=== PATIENT | female | born 1990 | race Caucasian/White ===

== ENCOUNTER 2017-03-21 09:30 | Emergency (ER) | payer OTHER ==
[2017-03-21 09:53] VITALS: BP 116/59
--- NOTE | 2017-03-21 10:35 | UC ---
General HPI - HPI Summary HPI Summary: 26yo WF c/o right upper chest wall pain intermittent x a few days, not associated with breast feeding, hurt below the 1st and 2nd rib at time, no exacerbating or alleviating factors. NO c/o pain in breast - History of Current Complaint Chief Complaint: UCWounds Stated Complaint: BREAST COMPLAINT Time Seen by Provider: 03/21/17 10:00 Hx Last Menstrual Period: 03/04/17 - Allergy/Home Medications Allergies/Adverse Reactions: Allergies Allergy/AdvReac Type Severity Reaction Status Date / Time Penicillins Allergy Hives/Diff. Verified 03/21/17 09:53 Breathing/I tching Home Medications: Home Medications NK [No Home Medications Reported] 03/21/17 [History Confirmed 03/21/17] PMH/Surg Hx/FS Hx/Imm Hx - Surgical History Surgical History: Yes Surgery Procedure, Year, and Place: 03/2012 - Social History Alcohol Use: Rare Substance Use Type: None Smoking Status (MU): Light Every Day Tobacco Smoker Type: Cigarettes, eCigarettes Household Exposure Type: Cigarettes - Immunization History Most Recent Influenza Vaccination: Not UTD Review of Systems Constitutional: Negative Skin: Negative Eyes: Negative ENT: Negative Respiratory: Negative Cardiovascular: Negative Gastrointestinal: Negative Genitourinary: Negative Motor: Negative Neurovascular: Negative Musculoskeletal: Other: - Right chest wall pain, NO breast compaints Neurological: Negative Psychological: Negative All Other Systems Reviewed And Are Negative: Yes Physical Exam Triage Information Reviewed: Yes Appearance: Well-Appearing Vital Signs: Initial Vital Signs Temp 36.2 C 03/21/17 09:44 Pulse 106 03/21/17 09:44 Resp 16 03/21/17 09:44 BP 116/59 03/21/17 09:44 Pulse Ox 98 03/21/17 09:44 Vital Signs Reviewed: Yes ENT: Positive: Normal ENT inspection Neck: Positive: Supple Respiratory Exam: Normal Cardiovascular Exam: Normal Abdominal Exam: Normal Musculoskeletal: Positive: Other: - mild tenderness over the region of 1st and 2nd ICS on right upper chest on palpation Skin Exam: Normal Course/Dx - Differential Dx - Multi-Symptom Provider Diagnoses: chest wall pain/musculoskeletal pain Discharge - Discharge Plan Condition: Stable Disposition: HOME Patient Education Materials: Musculoskeletal Pain (ED) Referrals: [facility] [place] [facility]IAN REFERRAL [Outside] - If Needed No Primary Care Phys,NOPCP [Primary Care Provider] - Additional Instructions: OTC analgesics as needed, activities as tolerated
== END 2017-03-21 10:35 | disposition home or self-care (01) ==
LOC: UCEAST 09:30
DX: R07.89 Other chest pain (principal); Z72.0 Tobacco use
CPT/HCPCS: 99211; G0463

== ENCOUNTER 2017-11-22 14:49 | Emergency (ER) | payer SELFPAY ==
[2017-11-22 17:12] VITALS: BP 119/74
--- NOTE | 2017-11-22 18:27 | RAD ---
Indication: Right hand injury. 4 views of the right hand are reviewed. There is deformity of the fifth metacarpal. This is from prior injury. No recent fracture is identified currently. IMPRESSION: Old deformity fifth metacarpal without evidence of recent fracture.
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
== END 2017-11-22 19:10 | disposition home or self-care (01) ==
LOC: UCEAST 14:49
DX: S60.221A Contusion of right hand, initial encounter (principal); S91.311A Laceration without foreign body, right foot, initial encounter; Y04.0XXA Assault by unarmed brawl or fight, initial encounter; Y93.9 Activity, unspecified; Y92.9 Unspecified place or not applicable; Z88.0 Allergy status to penicillin; F17.210 Nicotine dependence, cigarettes, uncomplicated
CPT/HCPCS: 99212; G0463

== ENCOUNTER 2018-07-30 08:41 | Emergency (ER) | payer OTHER ==
[2018-07-30 10:04] VITALS: BP 113/60
--- NOTE | 2018-07-30 10:31 | UC ---
UC General HPI - HPI Summary HPI Summary: sore throat and runny nose x 2 days. family with same. - History of Current Complaint Chief Complaint: UCGeneralIllness Stated Complaint: SORE THROAT,CONGESTION,COUGH Time Seen by Provider: 07/30/18 10:12 Hx Obtained From: Patient Hx Last Menstrual Period: 07/2018 Onset/Duration: Gradual Onset Timing: Constant Pain Intensity: 6 Associated Signs & Symptoms: Negative: Fever - Allergy/Home Medications Allergies/Adverse Reactions: Allergies Allergy/AdvReac Type Severity Reaction Status Date / Time Penicillins Allergy Anaphylatic Verified 07/30/18 10:04 Shock Home Medications: Home Medications guaiFENesin [Mucinex] 600 mg PO ONCE PRN 07/30/18 [History Confirmed 07/30/18] PMH/Surg Hx/FS Hx/Imm Hx Previously Healthy: Yes - Surgical History Surgical History: Yes Surgery Procedure, Year, and Place: x2 - Family History Known Family History: Positive: None - Social History Lives: With Family Alcohol Use: Occasionally Substance Use Type: None Smoking Status (MU): Former Smoker Type: Cigarettes Household Exposure Type: Cigarettes - Immunization History Most Recent Influenza Vaccination: Not UTD Most Recent Tetanus Shot: 2016 Vaccination Up to Date: Yes Review of Systems All Other Systems Reviewed And Are Negative: Yes ENT: Positive: Sore Throat, Sinus Congestion Physical Exam Triage Information Reviewed: Yes Appearance: Well-Appearing Vital Signs: Initial Vital Signs Temp 97.5 F 07/30/18 10:01 Pulse 81 07/30/18 10:01 Resp 16 07/30/18 10:01 BP 113/60 07/30/18 10:01 Pulse Ox 100 07/30/18 10:01 Vital Signs Reviewed: Yes Eyes: Positive: Conjunctiva Clear ENT: Positive: Pharyngeal erythema, TMs normal. Negative: Nasal drainage, Sinus tenderness Neck: Positive: Supple, Nontender, Enlarged Nodes @ - peritonsilar Respiratory: Positive: Lungs clear, Normal breath sounds Cardiovascular: Positive: RRR, No Murmur Abdomen Description: Positive: Nontender, No Organomegaly, Soft Bowel Sounds: Positive: Present Musculoskeletal: Positive: ROM Intact Neurological: Positive: Alert Psychological: Positive: Normal Response To Family, Age Appropriate Behavior Skin Exam: Normal Course/Dx - Course Course Of Treatment: diagnostic=rapid strep is negative - Diagnoses Provider Diagnosis: URI (upper respiratory infection) Discharge - Sign-Out/Discharge Documenting (check all that apply): Patient Departure All imaging exams completed and their final reports reviewed: No Studies - Discharge Plan Condition: Stable Disposition: HOME Patient Education Materials: Upper Respiratory Infection (DC) Forms: *Work Release Referrals: Carissa Tristan NP [Primary Care Provider] - 7 Days - Billing Disposition and Condition Condition: STABLE Disposition: Home
== END 2018-07-30 11:11 | disposition home or self-care (01) ==
LOC: UCCORT 08:41
DX: J06.9 Acute upper respiratory infection, unspecified (principal); Z88.0 Allergy status to penicillin; Z87.891 Personal history of nicotine dependence
CPT/HCPCS: 87651; 99211; G0463

== ENCOUNTER 2018-09-17 09:53 | Emergency (ER) | payer OTHER ==
--- OUTSIDE RECORDS SUMMARY | 2018-09-17 10:07 | XMS REPORT | Continuity of Care Document ---
:1990 External Reference #:[id number] Author Name Tricia Tristan FNP Address [address] [place] [address] Care Team Providers Name Role Phone Tricia Tristan NP Care Team Information Tobacco Prizer Unavailable Tricia Tristan NP Primary Care Physician Unavailable Payers Date Identification Numbers Payment Provider Subscriber Policy Number: [id number] [employer] Junie Dailey PayID: [id number] [address] [place] [address] Problems Active Problems Provider Date Urinary tract infectious disease Kristen Pacheco MD, PHD Onset: 04/29/2018 Hydronephrosis Kristen Pacheco MD, PHD Onset: 04/29/2018 Hypocalcemia Kristen Pacheco MD, PHD Onset: 04/29/2018 Constipation - functional Kristen Pacheco MD, PHD Onset: 05/28/2018 Resolved Problems Right upper quadrant pain Kristen Pacheco MD, PHD Onset: 05/28/2018 Resolved: 08/16/2018 Abdominal pain Kristen Pacheco MD, PHD Onset: 05/18/2018 Resolved: 08/16/2018 Family History Date Family Member(s) Observation Comments General No Current Problems Father Seizure Disorder Mother Glaucoma Social History Type Date Description Comments Sex Unknown Lives With Boyfriend Lives With Children Diet Patient follows no dietary restrictions ADL's/IADL's Independent with all ADL's ADL's/IADL's Independent with all IADL's Tobacco Use Start: Unknown End: Quit Unknown ETOH Use Occasionally consumes alcohol Tobacco Use Start: Unknown End: Patient is a former smoker Quit 03/2018 Unknown Recreational Drug Use Denies Drug Use Smoking Status Reviewed: 08/16/18 Patient is a former smoker Quit 03/2018 Allergies, Adverse Reactions, Alerts Active Allergies Reaction Severity Comments Date Penicillin Difficulty breathing 04/29/2018 Medications Active Medications SIG Qnty Indications Ordering Provider Date D3 Maximum Strength 1 cap by mouth 90caps E83.51 Kristen Pacheco, 2018 every day with MD, PHD 5000Unit Capsules food History Medications Dulcolax Stool 1 tab by mouth 180caps K59.09 Kristen Pacheco, 05/28/2018 - Softener twice a day , PHD 08/16/2018 100mg Capsules before meals Align 1 caps by mouth 14caps R10.9 Kristen Pacheco, 05/18/2018 - 4mg Capsules every day every , PHD 08/16/2018 morning Ciprofloxacin HCL Take One Tablet Unknown - 500mg By Mouth Twice 05/18/2018 Tablets A Day Ibuprofen Take One Tablet Unknown - 600mg Tablets By Mouth Three 08/16/2018 Times A Day as Needed For Pain Vital Signs Date Vital Result Comment 08/16/2018 10:06am BP Systolic 110 mmHg BP Diastolic 70 mmHg Heart Rate 86 /min Respiratory Rate 17 /min Height 62 inches 5'2" Weight 157.00 lb BMI (Body Mass Index) 28.7 kg/m2 BSA (Body Surface Area) 1.72 m2 Horace body weight in kilograms 50 kg O2 % BldC Oximetry 98 % 05/28/2018 10:10am BP Systolic 148 mmHg BP Diastolic 84 mmHg Body Temperature 98.2 F Heart Rate 103 /min Respiratory Rate 16 /min Height 62 inches 5'2" Weight 141.00 lb BMI (Body Mass Index) 25.8 kg/m2 BSA (Body Surface Area) 1.65 m2 Horace body weight in kilograms 50 kg O2 % BldC Oximetry 97 % 05/18/2018 9:35am BP Systolic 124 mmHg BP Diastolic 61 mmHg Body Temperature 97.7 F Heart Rate 90 /min Respiratory Rate 18 /min Height 62 inches 5'2" Weight 138.00 lb BMI (Body Mass Index) 25.2 kg/m2 BSA (Body Surface Area) 1.63 m2 Horace body weight in kilograms 50 kg O2 % BldC Oximetry 99 % 04/29/2018 2:08pm BP Systolic 111 mmHg BP Diastolic 66 mmHg Body Temperature 98.0 F Heart Rate 63 /min Height 62 inches 5'2" Weight 139.00 lb BMI (Body Mass Index) 25.4 kg/m2 BSA (Body Surface Area) 1.64 m2 Horace body weight in kilograms 50 kg O2 % BldC Oximetry 99 % Results Test Date Facility Test Result H/L Range Note Laboratory test 07/30/2018 [facility] Laboratory Rapid Strep Negative Negative 1 finding [phone] Molecular CBC W/Automated 05/20/2018 [facility] White Blood 8.1 K/uL N 3.1-10.[address] [place] [address] [phone] Red Blood Count 4.05 M/uL N 3.90-5.40 Hemoglobin 12.7 gm/dL N 11.6-15.8 Hematocrit 37.7 % N 36.0-46.1 Mean Cell Volume 93.1 fl N 80.9-99.0 Mean Corpuscular HGB 31.4 pg N 25.9-32.7 Mean Corpuscular HGB Conc 33.7 g/dL N 30.8-34.3 Platelet Count 232 K/uL N 155-360 Red Cell Distri Width SD 43.5 fl N 36-47 Red Cell Distri Width %CV 13.1 % N 11.7-14.4 Mean Platelet Volume 10.8 fL N 8.9-12.4 Neut% 59.1 % N 40.4-72.8 Lymph % 31.7 % N 20.0-42.0 [place] % 7.5 % N 4.3-13.2 Eo% 1.1 % N 0.0-6.6 Bas% 0.6 % N 0.0-1.1 Neut# 4.80 K/uL N 1.8-7.0 Lymph # 2.58 K/uL N 1.0-4.0 [place] # 0.61 K/uL N 0.3-0.9 Eos # 0.09 K/uL N 0.0-0.5 Baso # 0.05 K/uL N 0.0-0.1 Lactic Acid 05/20/2018 [facility] Lactic Acid 1.1 mmol/L N 0.4-1.[address] [place] [address] [phone] Lab Reflex >2.0 for Sepsis? Y Comprehensive Metabolic 05/20/2018 [facility] Glucose 97 mg/dL N 74-106 Panel [address] [address] [phone] BUN 15 mg/dL N 7-18 Creatinine 0.7 mg/dL N 0.6-1.3 Glom Filtration Rate, Estimate >60 mL/min >60 If >60 mL/min >60 3 BUN/Creat 21.4 ratio Sodium 141 mmol/L N 136-145 Potassium 3.7 mmol/L N 3.5-5.1 Chloride 108 mmol/L High 98-107 Carbon Dioxide 25 mmol/L N 21-32 Anion Gap 8 mEq/L N 8-16 Calcium 8.5 mg/dL N 8.5-10.1 Total Protein 7.5 g/dL N 6.4-8.2 Albumin 3.8 g/dL N 3.4-5.0 Globulin 3.7 g/dL N 1.9-4.3 Alb/Glob 1.0 ratio Bilirubin,Total 0.2 mg/dL N 0.2-1.0 Sgot/Ast 17 U/L N 15-37 SGPT/Alt 22 U/L N 12-78 Alkaline Phosphatase 63 U/L N 45-117 Laboratory 05/20/2018 [facility] HCG,Serum NEGATIVE (Negative) 4 test finding [address] (Qualitative) [place] [address] [phone] Laboratory 05/18/2018 [facility] Vitamin <pending> test finding [address] [facility] D,25-[place] [address] [phone] Laboratory 05/18/2018 [facility] Amylase <pending> test finding [address] [address] [phone] Lipase <pending> Ua RFX Micro & Culture 05/18/2018 [facility] Urine Color YELLOW Yellow 5 II [address] [place] [address] [phone] Urine Clarity CLEAR Clear Urine Glucose - Dipstick NEGATIVE mg/dL Negative Urine Bilirubin - Dipstick NEGATIVE Negative Urine Ketone NEGATIVE mg/dL Negative Urine Specific [place] 1.010 N 1.010-1.030 Urine Blood NEGATIVE Negative Urine PH 7.0 N 6.5-7.5 Urine Protein - Dipstick NEGATIVE mg/dL Negative Urine Urobilinogen - Dipstick 0.2 E.U./dL N 0.2-1.0 Urine Nitrite - Dipstick NEGATIVE Negative Urine Leuk Esterase NEGATIVE Negative Source: URINE, CLEAN CAT <SEE NOTE> 6 Urine Culture 05/18/2018 [facility] Urine Culture URETHRAL RONDA [address] [place] [address] [phone] Quantity 10,000 - 50,000 <SEE NOTE> 7 CBC W/Automated Diff 05/07/2018 [facility] White Blood 7.5 K/uL N 3.1-10.[address] Count [place], [place] [id number] [phone] Red Blood Count 3.87 M/uL Low 3.90-5.40 Hemoglobin 12.0 gm/dL N 11.6-15.8 Hematocrit 37.0 % N 36.0-46.1 Mean Cell Volume 95.6 fl N 80.9-99.0 Mean Corpuscular HGB 31.0 pg N 25.9-32.7 Mean Corpuscular HGB Conc 32.4 g/dL N 30.8-34.3 Platelet Count 382 K/uL High 155-360 Red Cell Distri Width SD 45.1 fl N 36-47 Red Cell Distri Width %CV 13.4 % N 11.7-14.4 Mean Platelet Volume 9.7 fL N 8.9-12.4 Neut% 68.2 % N 40.4-72.8 Lymph % 24.2 % N 20.0-42.0 [place] % 6.0 % N 4.3-13.2 Eo% 0.7 % N 0.0-6.6 Bas% 0.9 % N 0.0-1.1 Neut# 5.11 K/uL N 1.8-7.0 Lymph # 1.81 K/uL N 1.0-4.0 [place] # 0.45 K/uL N 0.3-0.9 Eos # 0.05 K/uL N 0.0-0.5 Baso # 0.07 K/uL N 0.0-0.1 Chlmaydia/GC/Trichomonas 05/07/2018 [facility] Chlamydia Negative Negative PCR [address] trachomatis, [place] [address] PCR [phone] Neisseria gonorrhoeae, PCR Negative Negative 9 Trichomonas vaginalis PCR Negative Negative 1 Damage Inside Adjuster: [id number] 2 LEFT SIDE PAIN 3 Note: Persistent reduction for 3 months or more in an eGFR <60 mL/min/1.73 m2 defines CKD. Patients with eGFR values >/=60 mL/min/1.73 m2 may also have CKD if evidence of persistent proteinuria is present. The original MDRD equation for estimated GFR is not valid for patients less than 18 years of age. Additional information may be found at www.kdoqi.org. 4 Method: Quidel QuickVue One-Step Immunoassay 5 N39.0 6 URINE, CLEAN CATCH 7 10,000 - 50,000 CFU/mL 8 PAIN AND CRAMPING UPPER L ABD, TENDER R SIDE ABD 9 A negative result for either C. trachomatis and/or N. gonorrhoeae does not preclued an infection because results are dependent on adequate specimen collection, absence of inhibitors, and sufficient DNA to be detected. Procedures Date Code Description Status 08/05/2013 06178 Anesthesia, Delivery Completed Encounters Type Date Location Provider Dx Diagnosis Office Visit 05/28/2018 [facility] Kristen Youssef, R10.11 Right upper 10:15a Kali Francis MD, PHD quadrant pain R10.30 Lower abdominal pain, unspecified K59.09 Other constipation Office Visit 05/18/2018 9:30a Family Deanna Pacheco N39.0 Urinary tract Kali Peterson MD, infection, site PHD not specified R10.9 Unspecified abdominal pain R10.11 Right upper quadrant pain Office Visit 04/29/2018 1:45p Ekaterina Osborne9.0 Urinary tract Kali Peterson MD, infection, site PHD not specified N13.30 Unspecified hydronephrosis E83.51 Hypocalcemia Plan of Treatment Future Appointment(s):09/22/2018 1:30 pm - Tricia Tristan FNP at [facility] 11/15/2018 10:00 am - Tricia Tristan FNP at [facility] 08/16/2018 - Tricia Tristan FNPK59.00 Constipation, unspecifiedComments:currently doing well with PRN (as needed) use of milk of magnesium (MOM). Consider daily use of psyllium husk as a natural fiber supplement . Be sure to drink water (eight 8 ounce glasses a day recommended), walking helps move things along as well.Follow up:well woman exam in 2-3 [id number] Generalized anxiety disorderComments:Continue with children's support
[2018-09-17 10:12] VITALS: BP 126/78
--- NOTE | 2018-09-17 10:40 | UC ---
General HPI - HPI Summary HPI Summary: 1. period is about 1.5 weeks late. she has breast tenderness. she has had a tubal ligation. no abdominal pain or bleeding. 2. bump L lower eye lid since last pm. no eye pain or discharge. - History of Current Complaint Chief Complaint: Jolie Stated Complaint: LEFT EYE COMPLAINT Time Seen by Provider: 09/17/18 10:28 Hx Obtained From: Patient Hx Last Menstrual Period: 08/07/18 Timing: Constant Pain Intensity: 4 Associated Signs & Symptoms: Negative: Abdominal Pain - Allergy/Home Medications Allergies/Adverse Reactions: Allergies Allergy/AdvReac Type Severity Reaction Status Date / Time Penicillins Allergy Anaphylatic Verified 09/17/18 10:08 Shock PMH/Surg Hx/FS Hx/Imm Hx Previously Healthy: Yes - Surgical History Surgical History: Yes Surgery Procedure, Year, and Place: x2 - Family History Known Family History: Positive: None - Social History Lives: With Family Alcohol Use: Occasionally Substance Use Type: None Smoking Status (MU): Light Every Day Tobacco Smoker Type: eCigarettes Amount Used/How Often: vapes Household Exposure Type: Cigarettes - Immunization History Most Recent Influenza Vaccination: Not UTD Most Recent Tetanus Shot: 2016 Vaccination Up to Date: Yes Review of Systems All Other Systems Reviewed And Are Negative: Yes Constitutional: Negative: Fever Skin: Negative: Rash Eyes: Positive: Eye Redness - L lower lid. Negative: Blurred Vision, Diplopia, Drainage, Photophobia ENT: Negative: Sore Throat, Ear Ache, Nasal Discharge Gastrointestinal: Negative: Abdominal Pain Genitourinary: Negative: Abnormal Bleeding Physical Exam Triage Information Reviewed: Yes Appearance: Well-Appearing Vital Signs: Initial Vital Signs Temp 97.3 F 09/17/18 10:08 Pulse 90 09/17/18 10:08 Resp 16 09/17/18 10:08 BP 126/78 09/17/18 10:08 Pulse Ox 98 09/17/18 10:08 Vital Signs Reviewed: Yes Eyes: Positive: Other: - No auricular adenopathy. No periorbital edema. Localized redness and swelling just below lash line on L lower lid(3/4cm), not fluctuant. Conjunctiva are clear. PERRL, EOMI, AC's clear> ENT: Positive: Pharynx normal, TMs normal. Negative: Nasal congestion, Nasal drainage Neck: Positive: Supple, Nontender, No Lymphadenopathy Respiratory: Positive: Lungs clear, Normal breath sounds Cardiovascular: Positive: RRR, No Murmur Abdomen Description: Positive: Nontender, No Organomegaly, Soft Bowel Sounds: Positive: Present Musculoskeletal: Positive: ROM Intact Neurological: Positive: Alert Psychological: Positive: Age Appropriate Behavior Skin Exam: Normal Diagnostics - Laboratory Lab Results: urine hcg=negative Course/Dx - Differential Dx - Multi-Symptom Differential Diagnoses: Other - no orbital or periorbital cellulitis. fairly large sty, will tx po dixycycline. - Diagnoses Provider Diagnosis: Sty, Negative test Discharge - Sign-Out/Discharge Documenting (check all that apply): Patient Departure All imaging exams completed and their final reports reviewed: No Studies - Discharge Plan Condition: Stable Disposition: HOME Prescriptions: DOXYcycline CAP(*) [DOXYcycline 100MG CAP(*)] 100 mg PO BID 7 Days #14 cap Patient Education Materials: Angela (ED) Referrals: Carissa Tristan NP [Primary Care Provider] - 7 Days - Billing Disposition and Condition Condition: STABLE Disposition: Home
== END 2018-09-17 10:45 | disposition home or self-care (01) ==
LOC: UCCORT 09:53
DX: H00.015 Hordeolum externum left lower eyelid (principal); Z32.02 Encounter for pregnancy test, result negative; F17.290 Nicotine dependence, other tobacco product, uncomplicated
CPT/HCPCS: 84702; 99212; G0463

== ENCOUNTER 2018-10-04 17:26 | Emergency (ER) | payer OTHER ==
[2018-10-04 17:33] VITALS: BP 105/68
--- NOTE | 2018-10-04 17:40 | UC ---
Abdominal Pain Female HPI - HPI Summary HPI Summary: 27-year-old woman comes in with chief complaint of right lower quadrant abdominal pain. This started couple hours ago. Pain is worse with walking and movement. It's better with rest. No fevers. Patient's had this pain on and off for couple of months. Occasional happened during intercourse. Patient has not had any abdominal surgeries. - History of Current Complaint Chief Complaint: UCAbdominalPain Stated Complaint: RIGHT ABD STABBING PAIN Time Seen by Provider: 10/04/18 17:32 Hx Last Menstrual Period: 10/01/18 Pain Intensity: 6 Allergies/Adverse Reactions: Allergies Allergy/AdvReac Type Severity Reaction Status Date / Time Penicillins Allergy Anaphylatic Verified 09/17/18 10:08 Shock Home Medications: Home Medications NK [No Home Medications Reported] 10/04/18 [History Confirmed 10/04/18] PMH/Surg Hx/FS Hx/Imm Hx Previously Healthy: Yes - Surgical History Surgical History: Yes Surgery Procedure, Year, and Place: x2 - Family History Known Family History: Positive: None - Social History Alcohol Use: Occasionally Substance Use Type: None Smoking Status (MU): Light Every Day Tobacco Smoker Type: eCigarettes Amount Used/How Often: vapes Household Exposure Type: Cigarettes - Immunization History Most Recent Influenza Vaccination: Not UTD Most Recent Tetanus Shot: 2016 Vaccination Up to Date: Yes Review of Systems All Other Systems Reviewed And Are Negative: Yes Constitutional: Positive: Negative Skin: Positive: Negative Eyes: Positive: Negative ENT: Positive: Negative Respiratory: Positive: Negative Cardiovascular: Positive: Negative Gastrointestinal: Positive: Abdominal Pain Motor: Positive: Negative Neurovascular: Positive: Negative Musculoskeletal: Positive: Negative Neurological: Positive: Negative Psychological: Positive: Negative Is Patient Immunocompromised?: No Physical Exam Triage Information Reviewed: Yes Appearance: Well-Appearing, Well-Nourished, Pain Distress - mild Vital Signs: Initial Vital Signs Temp 98.5 F 10/04/18 17:29 Pulse 84 10/04/18 17:29 Resp 16 10/04/18 17:29 BP 105/68 10/04/18 17:29 Pulse Ox 98 10/04/18 17:29 Vital Signs Reviewed: Yes Eye Exam: Normal Eyes: Positive: Conjunctiva Clear Neck: Positive: Supple Respiratory: Positive: No respiratory distress Abdomen Description: Positive: Other: - Positive heel strike and obturator sign. Positive tender to palpation RLQ. Musculoskeletal: Positive: Strength Intact, ROM Intact Neurological Exam: Normal Neurological: Positive: Alert, Muscle Tone Normal Psychological Exam: Normal Psychological: Positive: Normal Response To Family, Age Appropriate Behavior Skin Exam: Normal Abd Pain Female Course/Dx - Course Course Of Treatment: I recommended further evaluation in the Emergency department. Discussed with Rosi in the [facility]. - Differential Dx/Diagnosis Provider Diagnosis: RLQ abdominal pain Discharge - Sign-Out/Discharge Documenting (check all that apply): Patient Departure All imaging exams completed and their final reports reviewed: No Studies - Discharge Plan Condition: Stable Disposition: HOME-RECOMMEND TO ED Referrals: Carissa Tristan NP [Primary Care Provider] - Additional Instructions: GO DIRECTLY TO THE EMERGENCY DEPARTMENT FOR FURTHER EVALUATION. - Billing Disposition and Condition Condition: STABLE Disposition: Home-Recommend to ED
== END 2018-10-04 17:47 | disposition home health service (06) ==
LOC: UCCORT 17:26
DX: R10.31 Right lower quadrant pain (principal); F17.210 Nicotine dependence, cigarettes, uncomplicated
CPT/HCPCS: 99212; G0463

== ENCOUNTER 2018-10-05 09:07 | Emergency (ER) | payer OTHER ==
[2018-10-05 09:24] VITALS: BP 119/54
--- NOTE | 2018-10-05 10:44 | UC ---
Abdominal Pain Female HPI - HPI Summary HPI Summary: right lower abdominal pain x 2 weeks pain is on and off for the past 2 weeks been sever since yesterday , 8 out of 10 yesterday 6 out of 10 days , no radiation of the pain was seen at the urgent care yesterday , was told to go to ED for evaluation , had a ct done yesterday at ED with normal results, normal blood work no n/v/d/c, no urinary sx. - History of Current Complaint Chief Complaint: UCAbdominalPain Stated Complaint: RIGHT LOWER ABDOMINAL PAIN Time Seen by Provider: 10/05/18 09:36 Hx Obtained From: Patient Hx Last Menstrual Period: last week ?: No Onset/Duration: Gradual Onset, Lasting Weeks - 2, Still Present Timing: Intermittent Episodes Lasting: Severity Initially: Severe Severity Currently: Moderate Pain Intensity: 5 Location: Discrete At: RLQ Radiates: No Character: Sharp, Tearing Aggravating Factor(s): Movement Alleviating Factor(s): Spontaneous Resolution Associated Signs and Symptoms: Negative: Diaphoresis, Fever, Cough, Chest Pain, Dizzy, Back Pain, Constipation, Blood in Stool, Urinary Symptoms, Decreased Appetite, Vaginal Bleeding, Vaginal Discharge, Nausea, Vomiting, Diarrhea Allergies/Adverse Reactions: Allergies Allergy/AdvReac Type Severity Reaction Status Date / Time Penicillins Allergy Anaphylatic Verified 10/05/18 09:24 Shock PMH/Surg Hx/FS Hx/Imm Hx Previously Healthy: Yes - Surgical History Surgical History: Yes Surgery Procedure, Year, and Place: x2 - Family History Known Family History: Positive: None Negative: Diabetes - Social History Alcohol Use: Rare Substance Use Type: Excessive Caffeine Smoking Status (MU): Light Every Day Tobacco Smoker Type: eCigarettes Amount Used/How Often: vapes Household Exposure Type: Cigarettes - Immunization History Most Recent Influenza Vaccination: Not UTD Most Recent Tetanus Shot: 2016 Vaccination Up to Date: Yes Review of Systems All Other Systems Reviewed And Are Negative: Yes Constitutional: Positive: Negative Skin: Positive: Negative Eyes: Positive: Negative ENT: Positive: Negative Respiratory: Positive: Negative Gastrointestinal: Positive: Abdominal Pain Genitourinary: Negative: Dysuria, Hematuria, Frequency, Urgency, Vaginal/Penile Burning, Vaginal/Penile Itching Is Patient Immunocompromised?: No Physical Exam Triage Information Reviewed: Yes Appearance: Well-Appearing, Well-Nourished, Pain Distress Vital Signs: Initial Vital Signs Temp 98.1 F 10/05/18 09:19 Pulse 61 10/05/18 09:19 Resp 16 10/05/18 09:19 BP 119/54 10/05/18 09:19 Pulse Ox 100 10/05/18 09:19 Vital Signs Reviewed: Yes Eye Exam: Normal Eyes: Positive: Conjunctiva Clear ENT: Positive: Normal ENT inspection, Hearing grossly normal, Pharynx normal Neck: Positive: Supple, Nontender, No Lymphadenopathy Respiratory: Positive: Chest non-tender, Lungs clear, Normal breath sounds, No respiratory distress Cardiovascular: Positive: RRR, No Murmur, Pulses Normal Abdomen Description: Positive: Soft, Other: - tenderness right pelvic area. Negative: CVA Tenderness (R), CVA Tenderness (L), Distended, Guarding Bowel Sounds: Positive: Present Skin Exam: Normal Diagnostics - Radiology No standard instances Radiology Interpretation Completed By: Radiologist Summary of Radiographic Findings: IMPRESSION: transvaginal us. 1. NO SONOGRAPHIC FEATURES OF TORSION. PLEASE NOTE THAT PARTIAL OR INTERMITTENT TORSION. MAY BE SONOGRAPHICALLY NORMAL. 2. THERE IS A SMALL AMOUNT OF SIMPLE FLUID WITHIN THE CUL-DE-SAC. THIS MAY BE PHYSIOLOGIC. IN A REPRODUCTIVE AGE FEMALE. 3. 1.6 CM SIMPLE RIGHT OVARIAN CYST. Abd Pain Female Course/Dx - Differential Dx/Diagnosis Provider Diagnosis: Ovarian cyst, right Discharge - Sign-Out/Discharge Documenting (check all that apply): Patient Departure All imaging exams completed and their final reports reviewed: Yes - Discharge Plan Condition: Stable Disposition: HOME Patient Education Materials: Ovarian Cyst (ED) Forms: *Work Release Referrals: Carissa Tristan NP [Primary Care Provider] - Additional Instructions: please follow up with your GEOSPATIAL SYSTEMS INTEGRATOR kassidy - Billing Disposition and Condition Condition: STABLE Disposition: Home
== END 2018-10-05 10:46 | disposition home or self-care (01) ==
LOC: UCCORT 09:07
DX: N83.201 Unspecified ovarian cyst, right side (principal); F17.210 Nicotine dependence, cigarettes, uncomplicated
CPT/HCPCS: 76856; 99211; G0463

== ENCOUNTER 2018-10-25 17:12 | Emergency (ER) | payer OTHER ==
[2018-10-25 18:07] LABS: ABS Eosinophils 0.1 10^3/ul (0-0.6); ABS Lymphocytes 1.9 10^3/ul (1.0-4.8); ABS Monocytes 0.4 10^3/ul (0-0.8); ABS Neutrophils 3.1 10^3/ul (1.5-7.7); Eosinophil % 2.3 %; Hematocrit 35 % (35-47); Hemoglobin 12.2 g/dL (12.0-16.0); Lymphocyte % 34.2 %; Mean Corpuscular HGB Conc 35 g/dL (31-36); Mean Corpuscular Hemoglobin 32 pg (27-31); Mean Corpuscular Volume 91 fL (80-97); Mean Platelet Volume 9.2 fL (7.4-10.4); Nucleated Red Blood Cells % 0.1; Platelet Count 181 10^3/uL (150-450); Red Blood Count 3.88 10^6 /uL (3.70-4.87); Red Cell Distribution Width 14 % (10-15); White Blood Count 5.6 10^3/uL (3.5-10.8)
[2018-10-25 18:12] LABS: INR 1.03 (0.82-1.09)
[2018-10-25 18:30] LABS: ALT 14 U/L (7-52); AST 14 U/L (13-39); Albumin 4.2 g/dL (3.2-5.2); Albumin/Globulin Ratio 1.9 (1-3); Alkaline Phosphatase 45 U/L (34-104); Anion Gap 4 mmol/L (2-11); BUN/Creatinine Ratio 12.5 (8-20); Blood Urea Nitrogen 8 mg/dL (6-24); C Reactive Protein 2.43 mg/L (<8.01); CO2 Carbon Dioxide 28 mmol/L (22-32); Chloride 108 mmol/L (101-111); EGFR African American 133.7 (>60); EGFR Non-African American 110.5 (>60); Globulin 2.2 g/dL (2-4); Glucose 84 mg/dL (70-100); HCG Pregnancy < 0.60 mIU/mL; Potassium 4.3 mmol/L (3.5-5.0); Sodium 140 mmol/L (135-145); Total Protein 6.4 g/dL (6.4-8.9)
[2018-10-25 18:44] LABS: Urine Appearance Clear; Urine Bacteria Absent (Absent); Urine Bilirubin Negative (Negative); Urine Blood 1+ (Negative); Urine Color Yellow; Urine Glucose Negative (Negative); Urine Ketones Negative (Negative); Urine Nitrite Negative (Negative); Urine Protein Negative (Negative); Urine Red Blood Cell Trace(0-2/hpf) (Absent); Urine Specific Gravity 1.015 (1.010-1.030); Urine Squamous Epithelial Cell Present (Absent); Urine Urobilinogen Negative (Negative); Urine White Blood Cell Absent (Absent)
[2018-10-25 18:48] LABS: TSH (Thyroid Stimulating Horm) 0.55 mcIU/mL (0.34-5.60)
--- NOTE | 2018-10-25 18:51 | ED ---
GI/ HPI - HPI Summary HPI Summary: 28-year-old female presents with excessive vaginal bleeding for the past couple days. She has abdominal pain which is abnormal for her period. was diagnosed with ovarian cyst about two weeks. States no history of abnormal menses. has had her tubes tied. she admits to nausea in the morning. she states occasionally even though she is not . She hasn't taking anything for pain. no fevers. admits to lower abd pain. no diarrhea or constipation. - History of Current Complaint Chief Complaint: EDVaginalBleeding Time Seen by Provider: 10/25/18 17:46 Stated Complaint: LACTAING,PUKING PER PT Hx Last Menstrual Period: last week Pain Intensity: 5 - Allergy/Home Medications Allergies/Adverse Reactions: Allergies Allergy/AdvReac Type Severity Reaction Status Date / Time Penicillins Allergy Anaphylatic Verified 10/25/18 17:18 Shock PMH/Surg Hx/FS Hx/Imm Hx Endocrine/Hematology History: Denies: Hx Diabetes, Hx Thyroid Disease Cardiovascular History: Denies: Hx Hypertension Respiratory History: Denies: Hx Asthma, Hx Chronic Obstructive Pulmonary Disease (COPD) GI History: Denies: Hx Ulcer - Surgical History Surgery Procedure, Year, and Place: x2 Infectious Disease History: No Infectious Disease History: 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 Denies: Hx Hepatitis, Hx Human Immunodeficiency Virus (HIV), Traveled Outside the in Last 30 Days - Family History Known Family History: Positive: None Negative: Diabetes - Social History Alcohol Use: Rare Substance Use Type: Reports: Excessive Caffeine Smoking Status (MU): Light Every Day Tobacco Smoker Type: eCigarettes Amount Used/How Often: vapes Review of Systems Negative: Fever Negative: Chest Pain Negative: Shortness Of Breath Positive: Abdominal Pain, Vomiting, Nausea All Other Systems Reviewed And Are Negative: Yes Physical Exam Triage Information Reviewed: Yes Vital Signs On Initial Exam: Initial Vitals Temp Pulse Resp BP Pulse Ox 98.4 F 65 19 133/78 99 10/25/18 17:14 10/25/18 17:14 10/25/18 17:14 10/25/18 17:14 10/25/18 17:14 Vital Signs Reviewed: Yes Appearance: Positive: Well-Appearing Skin: Positive: Warm, Dry Head/Face: Positive: Normal Head/Face Inspection Eyes: Positive: Normal, Conjunctiva Clear ENT: Positive: Pharynx normal Respiratory/Lung Sounds: Positive: Clear to Auscultation, Breath Sounds Present Cardiovascular: Positive: Normal, RRR Abdomen Description: Positive: Soft, Other: - tenderness lower abd Bowel Sounds: Positive: Present Musculoskeletal: Positive: Normal Neurological: Positive: Normal Psychiatric: Positive: Normal Diagnostics - Vital Signs Vital Signs Temp Pulse Resp BP Pulse Ox 10/25/18 17:14 98.4 F 65 19 133/78 99 - Laboratory Lab Results: Lab Results 10/25/18 10/25/18 10/25/18 Range/Units 17:57 17:57 17:57 WBC 5.6 (3.5-10.8) 10^3/uL RBC 3.88 (3.70-4.87) 10^6 /uL Hgb 12.2 (12.0-16.0) g/dL Hct 35 (35-47) % MCV 91 (80-97) fL MCH 32 H (27-31) pg MCHC 35 (31-36) g/dL RDW 14 (10-15) % Plt Count 181 (150-450) 10^3/uL MPV 9.2 (7.4-10.4) fL Neut % (Auto) 55.6 % Lymph % (Auto) 34.2 % Heard % (Auto) 7.3 % Eos % (Auto) 2.3 % Baso % (Auto) 0.6 % Absolute Neuts (auto) 3.1 (1.5-7.7) 10^3/ul Absolute Lymphs (auto) 1.9 (1.0-4.8) 10^3/ul Absolute Monos (auto) 0.4 (0-0.8) 10^3/ul Absolute Eos (auto) 0.1 (0-0.6) 10^3/ul Absolute Basos (auto) 0.0 (0-0.2) 10^3/ul Absolute Nucleated RBC 0.0 10^3/ul Nucleated RBC % 0.1 INR (Anticoag Therapy) 1.03 (0.82-1.09) Sodium 140 (135-145) mmol/L Potassium 4.3 (3.5-5.0) mmol/L Chloride 108 (101-111) mmol/L Carbon Dioxide 28 (22-32) mmol/L Anion Gap 4 (2-11) mmol/L BUN 8 (6-24) mg/dL Creatinine 0.64 (0.51-0.95) mg/dL Est GFR ( Amer) 133.7 (>60) Est GFR (Non-Af Amer) 110.5 (>60) BUN/Creatinine Ratio 12.5 (8-20) Glucose 84 (70-100) mg/dL Calcium 9.0 (8.6-10.3) mg/dL Total Bilirubin 0.30 (0.2-1.0) mg/dL AST 14 (13-39) U/L ALT 14 (7-52) U/L Alkaline Phosphatase 45 (34-104) U/L C-Reactive Protein 2.43 (<8.01) mg/L Total Protein 6.4 (6.4-8.9) g/dL Albumin 4.2 (3.2-5.2) g/dL Globulin 2.2 (2-4) g/dL Albumin/Globulin Ratio 1.9 (1-3) TSH 0.55 (0.34-5.60) mcIU/mL Prolactin Pending Beta HCG, Quant < 0.60 mIU/mL Urine Color Urine Appearance Urine pH (5-9) Ur Specific [place] (1.010-1.030) Urine Protein (Negative) Urine Ketones (Negative) Urine Blood (Negative) Urine Nitrate (Negative) Urine Bilirubin (Negative) Urine Urobilinogen (Negative) Ur Leukocyte Esterase (Negative) Urine WBC (Auto) (Absent) Urine RBC (Auto) (Absent) Ur Squamous Epith Cells (Absent) Urine Bacteria (Absent) Urine Glucose (Negative) 10/25/18 Range/Units 18:30 WBC (3.5-10.8) 10^3/uL RBC (3.70-4.87) 10^6 /uL Hgb (12.0-16.0) g/dL Hct (35-47) % MCV (80-97) fL MCH (27-31) pg MCHC (31-36) g/dL RDW (10-15) % Plt Count (150-450) 10^3/uL MPV (7.4-10.4) fL Neut % (Auto) % Lymph % (Auto) % Heard % (Auto) % Eos % (Auto) % Baso % (Auto) % Absolute Neuts (auto) (1.5-7.7) 10^3/ul Absolute Lymphs (auto) (1.0-4.8) 10^3/ul Absolute Monos (auto) (0-0.8) 10^3/ul Absolute Eos (auto) (0-0.6) 10^3/ul Absolute Basos (auto) (0-0.2) 10^3/ul Absolute Nucleated RBC 10^3/ul Nucleated RBC % INR (Anticoag Therapy) (0.82-1.09) Sodium (135-145) mmol/L Potassium (3.5-5.0) mmol/L Chloride (101-111) mmol/L Carbon Dioxide (22-32) mmol/L Anion Gap (2-11) mmol/L BUN (6-24) mg/dL Creatinine (0.51-0.95) mg/dL Est GFR ( Amer) (>60) Est GFR (Non-Af Amer) (>60) BUN/Creatinine Ratio (8-20) Glucose (70-100) mg/dL Calcium (8.6-10.3) mg/dL Total Bilirubin (0.2-1.0) mg/dL AST (13-39) U/L ALT (7-52) U/L Alkaline Phosphatase (34-104) U/L C-Reactive Protein (<8.01) mg/L Total Protein (6.4-8.9) g/dL Albumin (3.2-5.2) g/dL Globulin (2-4) g/dL Albumin/Globulin Ratio (1-3) TSH (0.34-5.60) mcIU/mL Prolactin Beta HCG, Quant mIU/mL Urine Color Yellow Urine Appearance Clear Urine pH 6.0 (5-9) Ur Specific [place] 1.015 (1.010-1.030) Urine Protein Negative (Negative) Urine Ketones Negative (Negative) Urine Blood 1+ A (Negative) Urine Nitrate Negative (Negative) Urine Bilirubin Negative (Negative) Urine Urobilinogen Negative (Negative) Ur Leukocyte Esterase Negative (Negative) Urine WBC (Auto) Absent (Absent) Urine RBC (Auto) Trace(0-2/hpf) (Absent) Ur Squamous Epith Cells Present A (Absent) Urine Bacteria Absent (Absent) Urine Glucose Negative (Negative) Result Diagrams: 10/25/18 17:57 07/08/19 17:57 Lab Statement: Any lab studies that have been ordered have been reviewed, and results considered in the medical decision making process. Re-Evaluation - Re-Evaluation First Eval Re-Evaluation Time: 20:00 Comment: discussed results GIGU Course/Dx - Course Course Of Treatment: 28-year-old female presents with excessive vaginal bleeding for the past couple days. She has abdominal pain which is abnormal for her period. was diagnosed with ovarian cyst about two weeks. States no history of abnormal menses. has had her tubes tied. she admits to nausea in the morning. she states occasionally even though she is not . She hasn't taking anything for pain. no fevers. admits to lower abd pain. no diarrhea or constipation. On exam tenderness lower abdomen. Prolactin and tsh normal. wbc normal. transvaginal ultrasound shows right ovarian cyst. pelvic exam normal. discussed should follow up with ob. patient understand and agrees with plan. - Diagnoses Differential Diagnoses - Female: Ovarian Cyst, STD, Urinary Tract Infection Provider Diagnoses: Ovarian cyst, Dysfunctional uterine bleeding Discharge - Sign-Out/Discharge Documenting (check all that apply): Patient Departure Patient Received Moderate/Deep Sedation with Procedure: No - Discharge Plan Condition: Good Disposition: HOME Patient Education Materials: Dysfunctional Uterine Bleeding (ED), Ovarian Cyst (ED) Forms: *Work Release Referrals: Carisas Tristan NP [Primary Care Provider] - Additional Instructions: Take ibuprofen every 6 hours for pain Follow up with obgyn Return to ED if develop any new or worsening symptoms - Billing Disposition and Condition Condition: GOOD Disposition: Home
[2018-10-25 19:09] LABS: Prolactin 3.5 ng/mL (1.0-25.0)
[2018-10-25 20:08] VITALS: BP 0/0
[2018-10-26 13:58] LABS: Neisseria gonorrhoeae (GC) RNA Negative (Negative)
[2018-10-26 14:03] LABS: Trichomonas vaginalis Result Negative (Negative)
--- NOTE | 2018-10-27 08:08 | PN ---
Progress Note - Progress Note Date of Service: 10/25/18 Note: Patient was called at 8:10 AM to make aware of positive Gardnerella Metronidazole twice a day 7 days 500 mg sent to pharmacy Patient made aware and states will nut picker this afternoon Denies any furthering symptoms
== END 2018-10-25 20:07 | disposition home or self-care (01) ==
LOC: ED 17:12
DX: N83.201 Unspecified ovarian cyst, right side (principal); N93.8 Other specified abnormal uterine and vaginal bleeding; F17.290 Nicotine dependence, other tobacco product, uncomplicated; Z88.0 Allergy status to penicillin
CPT/HCPCS: 36415; 76830; 80053; 81003; 81015; 84146; 84443; 84702; 85025; 85610; 86140; 87480; 87491; 87510; 87591; 87661; 99282

== ENCOUNTER 2019-04-06 08:39 | Emergency (ER) | payer OTHER ==
[2019-04-06 09:03] VITALS: BP 109/68
[2019-04-06] MEDS ORDERED: Albuterol HFA INHALER* 8 gm MDI INH ONE (09:30)
--- NOTE | 2019-04-06 09:32 | UC ---
Respiratory Complaint HPI - HPI Summary HPI Summary: 28 yo female with cough/chest tightness and wheezing x 4 weeks recently quit smoking hx of bronchitis has used inhalers in past no f/c no sob - History of Current Complaint Chief Complaint: UCGeneralIllness Stated Complaint: CHEST CONGESTION,COUGH Time Seen by Provider: 04/06/19 09:25 Hx Obtained From: Patient Hx Last Menstrual Period: 02/23/19 Onset/Duration: Gradual Onset, Lasting Weeks Timing: Constant Severity Initially: Mild Severity Currently: Moderate Pain Intensity: 5 Pain Scale Used: 0-10 Numeric Character: Cough: Productive Aggravating Factors: Exertion, Deep Breaths Alleviating Factors: Nothing Associated Signs And Symptoms: Positive: Wheezing Related History: Similar Episode/Dx as: - bronchitis - Allergies/Home Medications Allergies/Adverse Reactions: Allergies Allergy/AdvReac Type Severity Reaction Status Date / Time Penicillins Allergy Anaphylatic Verified 04/06/19 08:56 Shock PMH/Surg Hx/FS Hx/Imm Hx Previously Healthy: Yes Respiratory History: Bronchitis - Surgical History Surgical History: Yes Surgery Procedure, Year, and Place: x2. tubal ligation - Family History Known Family History: Positive: None, Other - strong fhx Ca Negative: Cardiac Disease, Hypertension, Diabetes - Social History Alcohol Use: Occasionally Substance Use Type: None Smoking Status (MU): Former Smoker Type: eCigarettes Amount Used/How Often: vapes When Did the Patient Quit Smoking/Using Tobacco: 03/20/19 Household Exposure Type: Cigarettes - Immunization History Most Recent Influenza Vaccination: Not UTD Most Recent Tetanus Shot: 2016 Vaccination Up to Date: Yes Review of Systems All Other Systems Reviewed And Are Negative: Yes Constitutional: Positive: Negative Skin: Positive: Negative Eyes: Positive: Negative ENT: Positive: Negative Respiratory: Positive: Cough, Other - wheezing Cardiovascular: Positive: Negative Gastrointestinal: Positive: Negative Genitourinary: Positive: Negative Motor: Positive: Negative Neurovascular: Positive: Negative Musculoskeletal: Positive: Negative Neurological: Positive: Negative Psychological: Positive: Negative Physical Exam Triage Information Reviewed: Yes Appearance: Well-Appearing, No Pain Distress, Well-Nourished Vital Signs: Initial Vital Signs Temp 98 F 04/06/19 08:57 Pulse 80 04/06/19 08:57 Resp 16 04/06/19 08:57 BP 109/68 04/06/19 08:57 Pulse Ox 100 04/06/19 08:57 Vital Signs Reviewed: Yes Eyes: Positive: Conjunctiva Clear ENT: Positive: Hearing grossly normal, Pharynx normal, TMs normal, Uvula midline. Negative: Nasal congestion, Nasal drainage, Trismus, Muffled voice, Hoarse voice, Dental tenderness, Sinus tenderness Dental Exam: Normal Neck: Positive: Supple, Nontender, No Lymphadenopathy Respiratory: Positive: No respiratory distress, No accessory muscle use, Wheezing, Other: - bronchospastic cough Cardiovascular: Positive: RRR, No Murmur Abdomen Description: Positive: Nontender Bowel Sounds: Positive: Present Musculoskeletal: Positive: ROM Intact, No Edema Neurological: Positive: Alert Psychological Exam: Normal Skin Exam: Normal Respiratory Course/Dx - Differential Dx/Diagnosis Provider Diagnosis: Bronchitis Discharge ED - Sign-Out/Discharge Documenting (check all that apply): Patient Departure All imaging exams completed and their final reports reviewed: No Studies - Discharge Plan Condition: Stable Disposition: HOME Prescriptions: DOXYcycline CAP(*) [DOXYcycline 100MG CAP(*)] 100 mg PO BID #14 cap predniSONE TAB* [Deltasone 20 MG TAB*] 40 mg PO DAILY #8 tab Patient Education Materials: Acute Bronchitis (ED), How to Use a Metered-Dose Inhaler and a Spacer (ED) Referrals: Carissa Tristan NP [Primary Care Provider] - 5 Days (if not better) - Billing Disposition and Condition Condition: STABLE Disposition: Home
== END 2019-04-06 09:43 | disposition home or self-care (01) ==
LOC: UCCORT 08:39
DX: J40 Bronchitis, not specified as acute or chronic (principal); R06.2 Wheezing; Z88.0 Allergy status to penicillin; Z87.891 Personal history of nicotine dependence
CPT/HCPCS: 99213; A9270-GY; G0463; J7512

== ENCOUNTER 2019-06-06 12:44 | Emergency (ER) | payer OTHER ==
[2019-06-06 13:56] VITALS: BP 106/64
--- NOTE | 2019-06-06 13:58 | UC ---
Complaint Female HPI - HPI Summary HPI Summary: 28-year-old female with left-sided pain which she thought might be a urinary tract infection. She's had no injury however she can replicate the pain with turning and twisting movements. She denies any urinary symptoms. - History Of Current Complaint Chief Complaint: UCGU Stated Complaint: UTI SYMPTOMS Time Seen by Provider: 06/06/19 13:57 Hx Obtained From: Patient Hx Last Menstrual Period: current ?: No Onset/Duration: Gradual Onset Timing: Intermittent Severity Initially: Mild Severity Currently: Mild Pain Intensity: 8 Character: Sharp - Mildly sharp pain with turning or twisting Aggravating Factor(s): Movement Alleviating Factor(s): Position Associated Signs And Symptoms: Positive: Negative - Allergies/Home Medications Allergies/Adverse Reactions: Allergies Allergy/AdvReac Type Severity Reaction Status Date / Time Penicillins Allergy Anaphylatic Verified 06/06/19 13:52 Shock Home Medications: Home Medications Cholecalciferol TAB* [Vitamin D TAB*] 1,500 unit PO DAILY 06/06/19 [History Confirmed 06/06/19] Lactobacillus Acidophilus [Probiotic] 1 cap PO DAILY 06/06/19 [History Confirmed 06/06/19] Multivitamins/Minerals TAB* [Theragran/minerals TAB*] 1 dose PO DAILY 06/06/19 [ History Confirmed 06/06/19] PMH/Surg Hx/FS Hx/Imm Hx Previously Healthy: Yes - Surgical History Surgical History: Yes Surgery Procedure, Year, and Place: x2. tubal ligation - Family History Known Family History: Positive: None, Other - strong fhx Ca Negative: Cardiac Disease, Hypertension, Diabetes - Social History Lives: With Family Alcohol Use: None Substance Use Type: None Smoking Status (MU): Former Smoker Type: eCigarettes Amount Used/How Often: vapes When Did the Patient Quit Smoking/Using Tobacco: 03/20/19 Household Exposure Type: Cigarettes - Immunization History Most Recent Influenza Vaccination: Not UTD Most Recent Tetanus Shot: 2016 Vaccination Up to Date: Yes Review of Systems All Other Systems Reviewed And Are Negative: Yes Gastrointestinal: Positive: Negative Genitourinary: Positive: Negative Musculoskeletal: Positive: Other: - Patient states she has mild pain in the left lower back and can replicate that with turning. Is Patient Immunocompromised?: No Physical Exam Triage Information Reviewed: Yes Appearance: Well-Appearing, No Pain Distress, Well-Nourished Vital Signs: Initial Vital Signs Temp 98.3 F 06/06/19 13:50 Pulse 74 06/06/19 13:50 Resp 16 06/06/19 13:50 BP 106/64 06/06/19 13:50 Pulse Ox 100 06/06/19 13:50 Vital Signs Reviewed: Yes Eyes: Positive: Conjunctiva Clear Neck: Positive: Supple, Nontender, No Lymphadenopathy Respiratory: Positive: Lungs clear, Normal breath sounds, No respiratory distress, No accessory muscle use Cardiovascular: Positive: RRR, No Murmur, Pulses Normal, Brisk Capillary Refill Abdomen Description: Positive: Nontender, No Organomegaly, Soft. Negative: CVA Tenderness (R), CVA Tenderness (L), Distended, Guarding, Hepatomegaly, McBurney' s Point Tenderness, Splenomegaly Bowel Sounds: Positive: Present Musculoskeletal: Positive: Strength Intact, ROM Intact, Other: - Patient has full range of motion and she moves easily within the room and on the exam table without difficulty. She has mild left lower back pain on palpation. Neurological: Positive: Alert, Muscle Tone Normal Psychological Exam: Normal Skin Exam: Normal Complaint Female Dx - Course Course Of Treatment: Urinalysis: Negative I feel this is more of a muscle strain of her lower back as opposed to anything urinary. She can apply heat to the sore area and take Tylenol or Motrin for pain but a definite follow-up if she has any worsening symptoms or continued symptoms in 3 or 4 days. The patient is agreeable to this plan of action. - Differential Dx/Diagnosis Provider Diagnosis: Low back strain Discharge ED - Sign-Out/Discharge Documenting (check all that apply): Patient Departure All imaging exams completed and their final reports reviewed: No Studies - Discharge Plan Condition: Good Disposition: HOME Patient Education Materials: Muscle Strain (DC) Forms: *Work Release Referrals: Carissa Tristan NP [Primary Care Provider] - Additional Instructions: Apply heat to the sore area, take ibuprofen every 8 hours for pain. Follow-up with your primary care provider if no improvement in 3 or 4 days. If you have any worsening symptoms you are to go to the emergency room. - Billing Disposition and Condition Condition: GOOD Disposition: Home
== END 2019-06-06 14:25 | disposition home or self-care (01) ==
LOC: UCCORT 12:44
DX: S39.012A Strain of muscle, fascia and tendon of lower back, initial encounter (principal); Z88.0 Allergy status to penicillin; Z87.891 Personal history of nicotine dependence; X58.XXXA Exposure to other specified factors, initial encounter; Y92.9 Unspecified place or not applicable
CPT/HCPCS: 81003; 84702; 99211; G0463